=== PATIENT | female | born 1975 | race Caucasian/White ===

== ENCOUNTER 2016-08-19 18:58 | Emergency (ER) ==
--- NOTE | 2016-08-19 19:02 | ED.PDOC ---
General ED Provider: Dr. DIMA RODRIGUEZ-ER Chief Complaint: Bite Stated Complaint: ольга got a bug bite Time Seen by Physician: 18:59 Mode of Arrival: Walk-In Information Source: Patient Primary Care [facility] Nursing and Triage Documentation Reviewed and Agree: Yes Skin Complaint Exam - Skin/Soft Tissue Complaint/Exam Onset/Duration: 24hrs Symptoms Are: Still present Timing: Constant Initial Severity: Mild Current Severity: Mild Location: posterior neck Character: Reports: Redness, Swelling, Raised. Denies: Painful Aggravating: Reports: None Alleviating: Reports: None Associated Signs and Symptoms: Reports: Tenderness. Denies: Fever, Chills, Itching, Drainage, Bruising, Red streaks, Joint swelling Related Surgical History: Reports: None Recent Exposure to Others w/Similar Symptoms: No Skin Findings: Present: Erythema Joint Tenderness Present: No Differential Diagnoses: Infection Review of Systems - Review Of Systems Constitutional: Reports: No symptoms Eyes: Reports: No symptoms Ears, Nose, Mouth, Throat: Reports: No symptoms Respiratory: Reports: No symptoms Cardiac: Reports: No symptoms GI: Reports: No symptoms, Other : Reports: No symptoms Musculoskeletal: Reports: No symptoms Skin: Reports: Lumps Neurological: Reports: No symptoms Endocrine: Reports: No symptoms Hematologic/Lymphatic: Reports: No symptoms All Other Systems: Reviewed and Negative Past Medical History - Past Medical History Previously Healthy: No Endocrine: Reports: None Cardiovascular: Reports: None Respiratory: Reports: None Hematological: Reports: None Gastrointestinal: Reports: None Genitourinary: Reports: None Neuro/Psych: Reports: None Musculoskeletal: Reports: None Cancer: Reports: None - Surgical History General Surgical History: Reports: , Orthopedic (right hand) - Family History Family History: Reports: None - Social History Smoking Status: Current every day smoker, Heavy tobacco smoker Hx Substance Use: No Alcohol Screening: None Lives: With family Physical Exam - Physical Exam Appearance: Well-appearing, No pain distress, Well-nourished Eyes: JOSSE, EOMI, Conjunctiva clear ENT: Ears normal, Nose normal, Oropharynx normal Neck: Supple Respiratory: Airway patent, Breath sounds clear, Breath sounds equal, Respirations nonlabored Cardiovascular: RRR GI/: Soft, Nontender, No masses, Bowel sounds normal, No Organomegaly Musculoskeletal: Normal strength, ROM intact, No edema, No calf tenderness Skin: Warm, Dry, Normal color Neurological: Sensation intact Psychiatric: Affect appropriate Critical Care Note - Critical Care Note Total Time (mins): 0 Departure - Departure Time of Disposition: 19:01 Disposition: HOME SELF-CARE Discharge Problem: Insect bite Qualifiers: Encounter type: initial encounter Qualifier Code: (W57.XXXA) Bitten or stung by nonvenomous insect and other nonvenomous arthropods, initial encounter Instructions: Insect Bite or Sting (ED) Condition: Good Pt referred to PMD for follow-up: Yes Additional Instructions: keflex 500mg bid x 7days--medrol dose pack--f/u with pcp Allergies/Adverse Reactions: Allergies butorphanol tartrate [From Stadol] Adverse Reaction (Verified 05/08/15 18:43) Home Medications: Ambulatory Orders Hydrocodone Bit/Acetaminophen [Lortab 10-500] 1 tab PO QID 09/05/12 Tizanidine HCl 6 mg PO TID 06/27/14 Norethindrone-E.estradiol-Iron [Uljbcc-Nkkpmt-Jw 1-0.02(40)-75] 1 tab PO DAILY 05/08/15 Ondansetron HCl [Zofran] 4 mg PO TID #14 tablet 05/08/15 Transfer Form Completed: Yes Disposition Discussed With: Patient
[2016-08-19 19:09] VITALS: BP 141/96; TEMP 98.7; BMI 28.5
== END 2016-08-19 19:05 | disposition home or self-care (01) ==
LOC: ED 18:58
DX: S10.96XA Insect bite of unspecified part of neck, initial encounter (principal); W57.XXXA Bitten or stung by nonvenomous insect and other nonvenomous arthropods, initial encounter; F17.210 Nicotine dependence, cigarettes, uncomplicated
CPT/HCPCS: 99282

== ENCOUNTER 2016-10-10 11:12 | Emergency (ER) ==
[2016-10-10 11:21] VITALS: BP 130/88; TEMP 98.9; BMI 28.1
[2016-10-10] MEDS ORDERED: LIDOCAINE 1 % AMP 5 ML (SUTURES) IM STA (11:33)
[2016-10-10] MEDS ORDERED: NORCO 10-325 PO STA (11:33)
[2016-10-10] MEDS ORDERED: ROCEPHIN IM STA (11:33)
--- NOTE | 2016-10-10 11:36 | ED.PDOC ---
General ED Provider: Dr. DIPESH GO Chief Complaint: Tooth Problem Stated Complaint: TOOTHACHE Time Seen by Physician: 11:20 (SEEN WITH WESLEY) Mode of Arrival: Walk-In Information Source: Patient Exam Limitations: No limitations Nursing and Triage Documentation Reviewed and Agree: Yes (LEFT SIDED JAW EDEMA) EENT Complaint Exam - Dental/Oral Complaint/Exam Mechanism of Injury: No known trauma Onset/Duration: 1 DAY Symptoms Are: Still present Timing: Constant Initial Severity: Moderate Current Severity: Moderate Character: Reports: Aching Aggravating: Reports: Heat, Cold, Chewing Alleviating: Reports: None Related History: Reports: Similar episode Cardiac Risk Factors: Reports: None Dental/Oral Surgical History: Reports: None Tooth Findings: Present: Gross decay, Gross caries Cervical Lymphadenopathy Present: No Facial Swelling Present: Yes (LEFT JAW) Septal Hematoma: No Foreign Body Present: No Dysphagia Present: No Drooling Present: No Asymmetrical Tonsillar Swelling Present: No Uvula Midline: No Geneva-tonsillar Fluctuence: No Trismus Present: No Palatal Petechiae Present: No Scarlatinaform Rash Present: No Teeth Picture: 1 - DECAY ADVANCE STAGES Differential Diagnoses: Dental Abcess, Dental Caries Review of Systems - Review Of Systems Constitutional: Reports: No symptoms Eyes: Reports: No symptoms Ears, Nose, Mouth, Throat: Reports: Mouth swelling (LEFT JAW DENTITION POOR) Respiratory: Reports: No symptoms Cardiac: Reports: No symptoms GI: Reports: No symptoms : Reports: No symptoms Musculoskeletal: Reports: No symptoms Skin: Reports: No symptoms Neurological: Reports: No symptoms Endocrine: Reports: No symptoms Hematologic/Lymphatic: Reports: No symptoms All Other Systems: Reviewed and Negative Past Medical History - Past Medical History Previously Healthy: No Endocrine: Reports: None Cardiovascular: Reports: None Respiratory: Reports: None Hematological: Reports: None Gastrointestinal: Reports: None Genitourinary: Reports: None Neuro/Psych: Reports: None Musculoskeletal: Reports: None Cancer: Reports: None Last Menstrual Period: 10/07/2016 - Surgical History General Surgical History: Reports: , Orthopedic (right hand) - Family History Family History: Reports: None - Social History Smoking Status: Current every day smoker, Light tobacco smoker Hx Substance Use: No Alcohol Screening: Occasionally - Immunizations Tetanus Shot up to Date: No Physical Exam - Physical Exam Appearance: Well-appearing, No pain distress, Well-nourished Eyes: JOSSE, EOMI, Conjunctiva clear ENT: Ears normal, Nose normal, Oropharynx normal Respiratory: Airway patent, Breath sounds clear, Breath sounds equal, Respirations nonlabored Cardiovascular: RRR, Pulses normal, No rub, No murmur GI/: Soft, Nontender, No masses, Bowel sounds normal, No Organomegaly Musculoskeletal: Normal strength, ROM intact, No edema, No calf tenderness Skin: Warm, Dry, Normal color Neurological: Sensation intact, Motor intact, Reflexes intact, Cranial nerves intact, Alert, Oriented Psychiatric: Affect appropriate, Mood appropriate Physician Notification - Case Discussed Physician Notified: [facility]TED [facility] [employer] CARLITOS STATED NO SERVICE AVILABLE Time of Notification: 11:38 Physician Notified: spencer LOZA Time of Notification: 11:58 (WILL SEE PT NOW) Critical Care Note - Critical Care Note Total Time (mins): 0 Course - Course Orders, Labs, Meds: Orders Category Date Time Status Ceftriaxone Sodium [Rocephin] MEDS 10/10/16 11:33 Stat 1 gm IM ONCE STA Hydrocodone Bit/Acetaminophen [[place] 10-325] MEDS 10/10/16 11:33 Stat 1 tab PO ONCE STA Lidocaine HCl/Pf [Lidocaine 1 % Amp 5 ml (Sutures)] MEDS 10/10/16 11:33 Stat 2.1 ml IM ONCE STA Medications Generic Name Dose Route Start Last Admin Trade Name Sarah PRN Reason Stop Dose Admin Acetaminophen/Hydrocodone Bitart 1 tab 10/10/16 11:33 [place] 10-325 PO 10/10/16 11:34 ONCE STA Ceftriaxone Sodium 1 gm 10/10/16 11:33 Rocephin IM 10/10/16 11:34 ONCE STA Lidocaine HCl 2.1 ml 10/10/16 11:33 Lidocaine 1 % Amp 5 Ml (Sutures) IM 10/10/16 11:34 ONCE STA Vital Signs: Temp Pulse Resp BP Pulse Ox 10/10/16 11:14 98.9 F 118 H 20 130/88 98 Departure - Departure Time of Disposition: 13:00 Disposition: HOME SELF-CARE Discharge Problem: Dental abscess Instructions: Dental Abscess (ED) Condition: Good Pt referred to PMD for follow-up: Yes Additional Instructions: Please call your Family Physician as soon as possible to schedule a follow-up appointment. YOU MUST MAKE SURE YOU FOLLOW UP DOCTOR SPENCER. NOW Allergies/Adverse Reactions: Allergies butorphanol tartrate [From Stadol] Adverse Reaction (Verified 08/19/16 19:01) Home Medications: Ambulatory Orders Hydrocodone Bit/Acetaminophen [Lortab 10-500] 1 tab PO QID 09/05/12 Amitriptyline HCl [Elavil] 50 mg PO DAILY 08/19/16
== END 2016-10-10 12:15 | disposition home or self-care (01) ==
LOC: ED 11:12
DX: K04.7 Periapical abscess without sinus (principal); K02.7 Dental root caries; F17.210 Nicotine dependence, cigarettes, uncomplicated
CPT/HCPCS: 96372; 99283

== ENCOUNTER 2017-11-13 10:16 | Outpatient (CLI) | END 2017-11-13 10:17 | disposition home or self-care (01) | LOC: RHC-LAB 10:16 | PROVIDERS: ATTEND Nurse Practitioner Family | DX: J02.9 Acute pharyngitis, unspecified (principal) | CPT/HCPCS: 87651 ==